=== PATIENT | male | born 1940 | race Caucasian/White ===

== ENCOUNTER → 2018-01-12 | Outpatient (CLI) | payer OTHER ==
--- NOTE | 2018-01-25 23:35 | ONC ---
[address] [address] RADIATION ONCOLOGY NOTE Name: ANGELAJAVI Room: [facility]#: [id number] Admission: 01/12/18 Attend Phys: Ren Perrin MD Discharge: Date of : 40 Report #: [id number] THIS REPORT FOR: //name// CC: Ren Bar MD DATE OF SERVICE: 01/12/2018 REFERRING PHYSICIANS: Include Dr. Brad Knapp, Dr. Smalls, Dr. Patiño, Dr. Monsalve and Dr. Chase Bar. [facility] phone is [phone]. 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 Radiation treatments were completed on 03/21/2014. PROCEDURE: Nasopharyngolaryngoscopy. FINDINGS: On nasopharyngolaryngoscopy via the right nostril after administration of a small amount of 2% viscous lidocaine orally and 2% viscous lidocaine to the right nostril, there were no visible lesions in the nasopharynx and no visible lesions in the posterior oropharynx. The true vocal cords were normally mobile bilaterally without any visible lesions. There was no evidence of laryngeal cancer at this time. Thank you for allowing me to participate in the care of this patient. <ELECTRONICALLY SIGNED> By: Ren Perrin MD 01/25/18 2335 1302 1832Demma Perrin MD /nt
--- NOTE | 2018-01-25 23:45 | ONC ---
[place] [address] RADIATION ONCOLOGY NOTE Name: ANGELAJAVI Lyndsay Room: [facility]#: [id number] Admission: 01/12/18 Attend Phys: Ren Perrin MD Discharge: Date of : 40 Report #: [id number] THIS REPORT FOR: //name// CC: Ren Bar MD DATE OF SERVICE: 01/12/2018 REFERRING PHYSICIANS: Dr. Brad Knapp, Dr. Smalls, Dr. Patiño, Dr. Monsalve and Dr. Chase Bar. [facility] phone is [phone]. 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 The radiation treatments were completed on 03/21/2014. INTERVAL NOTE: The patient has a good voice quality. He is swallowing well. He did not have any painful swallowing. He did indicate that he had a neck CT after he fell off a step ladder in November 2017 and he had the report from the neck CT done in November 2017 and it was essentially unremarkable. Also, he had a melanoma that was resected from the superior part of the nose around 2007. MEDICATIONS: Include Spiriva, pantoprazole, losartan, allopurinol, 50 mcg of levothyroxine per day and tamsulosin. SOCIAL HISTORY: The patient quit smoking in 1984. He smoked about 1 cigarette per day prior to that time. REVIEW OF SYSTEMS: RESPIRATORY: The patient was not short of breath. His breathing was baseline. GASTROINTESTINAL: The patient has a good appetite. PHYSICAL EXAMINATION: VITAL SIGNS: The patient weighed 201.2 pounds on 01/12/2018, he was 195.4 pounds on 05/12/2017 and on 01/12/2018, blood pressure was 134/76, pulse 72, respirations 18. LYMPH NODES: He had no cervical, supraclavicular lymphadenopathy. HEAD, EYES, EARS, NOSE AND THROAT: Mouth had no suspicious visible lesions or suspicious palpable lesions. On nasopharyngolaryngoscopy via the right nostril after administration of a 2% [place] [address] RADIATION ONCOLOGY NOTE Name: JAVI MILLER Room: [facility]#: [id number] Admission: 01/12/18 Attend Phys: Ren Perrin MD Discharge: Date of : 40 Report #: [id number] viscous lidocaine orally and 2% viscous lidocaine via the right nostril with a cotton swab, there were no visible lesions in the nasopharynx or posterior oropharynx. The true vocal cords were normally mobile bilaterally without visible lesions. HEART: Had a regular rate and rhythm without murmur. LUNGS: were clear to auscultation. LABORATORY DATA: From 01/05/2018 revealed TSH was 3.17, which was within normal limits on his present dose of 50 mcg of levothyroxine. ASSESSMENT AND PLAN: 1. History of laryngeal cancer- There is no evidence of laryngeal cancer at this time. The patient was asked to schedule a followup appointment to see me in about 8 months. 2. Hypothyroidism- The patient's TSH was within normal limits with him taking 50 mcg of levothyroxine per day. He was given a refill for 50 mcg of levothyroxine per day. He was given a requisition for a TSH, in August 2018. He was asked to schedule a followup appointment to see me afterwards. 3. History of melanoma that was resected from the nasal area- There is no evidence of any lesion in that area and he indicated he sees his phosphoric acid supervisor about twice a year. Thank you for allowing me to participate in the care of this patient. <ELECTRONICALLY SIGNED> By: Ren Perrin MD 01/25/18 2345 1307 1842Demma Perrin MD /nt
== END ==
LOC: M.RTH 00:37
DX: Z08 Encounter for follow-up examination after completed treatment for malignant neoplasm (principal); E03.9 Hypothyroidism, unspecified; Z85.21 Personal history of malignant neoplasm of larynx; Z87.891 Personal history of nicotine dependence; Z98.890 Other specified postprocedural states

== ENCOUNTER → 2018-09-21 | Outpatient (CLI) | payer OTHER ==
--- NOTE | 2018-09-30 17:30 | ONC ---
[place] [address] RADIATION ONCOLOGY NOTE Name: ANGELAJAVI Lyndsay Room: [facility]#: [id number] Admission: 09/21/18 Attend Phys: Ren Perrin MD Discharge: Date of : 40 Report #: [id number] THIS REPORT FOR: //name// CC: Ren Knapp MD [facility] in [place], [place] DATE OF SERVICE: 09/21/2018 REFERRING PHYSICIANS: Include [facility], [place], [place]; Brad Knapp MD; Dr. Smalls and Dr. Patiño PRIMARY SITE AND HISTOPATHOLOGY: The patient received definitive radiation therapy for a stage 1 true vocal cord cancer. Radiation treatments were completed on 03/21/2014. PROCEDURE: Nasopharyngolaryngoscopy. FINDINGS: On nasopharyngolaryngoscopy via the right nostril after administration of a small amount of 2% viscous lidocaine orally and 2% viscous lidocaine to the right nostril, there were no suspicious visible lesions in the nasopharynx. There were no suspicious visible lesions in the posterior oropharynx and the true vocal cords were normally mobile bilaterally without any visible lesions. There was no evidence of laryngeal cancer at this time. Thank you for allowing me to participate in the care of this patient. <ELECTRONICALLY SIGNED> By: Ren Perrin MD 09/30/18 1730 1023 0431DMD lynne Liz
--- NOTE | 2018-09-30 17:57 | ONC ---
[address] [address] RADIATION ONCOLOGY NOTE Name: ANGELAJAVI Lyndsay Room: [facility]#: [id number] Admission: 09/21/18 Attend Phys: Ren Perrin MD Discharge: Date of : 40 Report #: [id number] THIS REPORT FOR: //name// CC: Ren Patiño [facility] in [place], [place] DATE OF SERVICE: 09/21/2018 REFERRING PHYSICIANS: [facility] in [place] as well as Dr. Knapp, Dr. Smalls and Dr. Patiño as well [facility] phone is [phone]. 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 The radiation treatments were completed on 03/21/2014. He also had a melanoma resected from the superior portion of his nose around 2007. INTERVAL NOTE: The patient has a good voice quality. He is swallowing well. He has a good appetite and he went back to work. At this point, he says he works about 20 hours a week. MEDICATIONS: He is taking Spiriva, pantoprazole, losartan, allopurinol, 50 mcg of levothyroxine per day and tamsulosin. SOCIAL HISTORY: The patient quit smoking in 1984. He smoked about 1 cigarette per day prior to that time. REVIEW OF SYSTEMS: RESPIRATORY: The patient was not short of breath. His breathing was baseline. GASTROINTESTINAL: The patient has a good appetite. PHYSICAL EXAMINATION: VITAL SIGNS: The patient weighed 193.4 pounds on 09/21/2018, he was 201.2 pounds on 01/12/2018, he was 195.4 pounds on 05/12/2017. On 09/21/2018, blood pressure was 126/60, pulse 64, respirations 20 and oxygen saturation 95%. LYMPH NODES: He had no palpable cervical or supraclavicular lymphadenopathy. HEAD, EYES, EARS, NOSE AND THROAT: Mouth had no suspicious visible lesions. There were no suspicious palpable lesions in the mouth. The nose had no suspicious visible lesions. On nasopharyngolaryngoscopy via the right nostril after administration of a small amount of 2% viscous lidocaine orally and 2% viscous lidocaine via the right nostril with a cotton swab, there were no visible lesions in the nasopharynx or posterior oropharynx. The true vocal cords were [place] [address] RADIATION ONCOLOGY NOTE Name: JAVI MILLER Room: [facility]#: [id number] Admission: 09/21/18 Attend Phys: Ren Perrin MD Discharge: Date of : 40 Report #: [id number] without visible lesions. HEART: Had a regular rate and rhythm without murmur. LUNGS: were clear to auscultation. LABORATORY DATA: From 09/17/2018, TSH was 2.38, which was within normal limits on his present dose of 50 mcg of levothyroxine. ASSESSMENT AND PLAN: 1. History of laryngeal cancer- There is no evidence of laryngeal cancer at this time. The patient was asked to schedule a follow up appointment to see me in about 8 months. 2. Hypothyroidism- The patient's TSH is within normal limits with him taking 50 mcg of levothyroxine per day. He was given a refill for 50 mcg of levothyroxine per day. He was given a requisition for TSH in about 8 months and he was asked to schedule a follow up appointment to see me afterwards. 3. History of melanoma resected from the nasal area- There is no evidence of any lesion in that area and he indicated he sees his sommelier, Dr. Patiño about twice a year. Thank you for allowing me to participate in the care of this patient. <ELECTRONICALLY SIGNED> By: Ren Perrin MD 09/30/18 1757 1030 0450Ren Perrin MD /nt
== END ==
LOC: M.RTH 03:41
DX: Z08 Encounter for follow-up examination after completed treatment for malignant neoplasm (principal); E03.9 Hypothyroidism, unspecified; Z85.21 Personal history of malignant neoplasm of larynx; Z85.22 Personal history of malignant neoplasm of nasal cavities, middle ear, and accessory sinuses

== ENCOUNTER → 2019-05-31 | Outpatient (CLI) | payer OTHER ==
--- NOTE | ~2019-05-31 | ONC ---
[place] [address] RADIATION ONCOLOGY NOTE Name: JAVI MILLER Room: [facility]#: [id number] Admission: 05/31/19 Attend Phys: Ren Perrin MD Discharge: Date of : 40 Report #: [id number] THIS REPORT FOR: //name// CC: Ren Knapp DATE OF SERVICE: 05/31/2019 RADIATION ONCOLOGY PROCEDURE NOTE REFERRING PHYSICIANS: Dr. Patiño, Dr. Smalls, Dr. Brad Knapp in [facility] in [place], [place]. PRIMARY SITE AND HISTOPATHOLOGY: The patient received definitive radiation therapy for stage 1 true vocal cord cancer. Radiation treatments were completed on 03/21/2014. PROCEDURE: Nasopharyngolaryngoscopy. FINDINGS: On nasopharyngolaryngoscopy via the right nostril after administration of a small amount of 2% viscous lidocaine orally, 2% viscous lidocaine to the right nostril, there were no suspicious visible lesions in the nasopharynx. There are no suspicious visible lesions in the posterior oropharynx and the true vocal cords are normally mobile bilaterally without any visible lesions. There was no evidence of laryngeal cancer at this time. Thank you for allowing me to participate in the care of this patient. By: [facility] 2322Demma Perrin MD /nt
--- NOTE | ~2019-05-31 | ONC ---
[place] [address] RADIATION ONCOLOGY NOTE Name: ANGELAJAVI Lyndsay Room: [facility]#: [id number] Admission: 05/31/19 Attend Phys: Ren Perrin MD Discharge: Date of : 40 Report #: [id number] THIS REPORT FOR: //name// CC: Ren Knapp DATE OF SERVICE: 05/31/2019 REFERRING PHYSICIANS: Kenny Smalls MD; Brad Knapp MD; Dr. Patiño in the [facility] in [place], [place]. [facility] phone is [phone]. PRIMARY SITE AND HISTOPATHOLOGY: The patient received definitive radiation therapy for stage 1 true vocal cord cancer. The radiation treatments were completed on 03/21/2014. He also had a melanoma resected from the superior portion of his nose around 2007. INTERVAL NOTE: The patient has a good voice quality. He is swallowing well. He has a good appetite. MEDICATIONS: Include Spiriva, Nexium, losartan, allopurinol, 50 mcg of levothyroxine per day and tamsulosin. SOCIAL HISTORY: The patient quit smoking in 1984. He smoked about 1 cigarette per day prior to that time. REVIEW OF SYSTEMS: RESPIRATORY: The patient was not short of breath. His breathing was baseline. GASTROINTESTINAL: The patient has a good appetite. PHYSICAL EXAMINATION: VITAL SIGNS: The patient weighed 192 pounds on 05/31/2019 and 193.4 pounds on 09/21/2018; on 05/31/2019, blood pressure 128/66, pulse 60, respirations 20, oxygen saturation 94%. LYMPH NODES: He had no palpable cervical or supraclavicular lymphadenopathy. HEAD, EYES, EARS, NOSE AND THROAT: Mouth had no suspicious visible lesions or suspicious palpable lesions. On nasopharyngolaryngoscopy via the right nostril after administration of a small amount of 2% viscous lidocaine orally and 2% viscous lidocaine via the right nostril with a cotton swab, there were no visible lesions in the nasopharynx or posterior oropharynx. The true vocal cords were normally mobile bilaterally without visible lesions. HEART: Had a regular rate and rhythm without murmur. LUNGS: Clear to auscultation. LABORATORY DATA: From 05/24/2019; TSH was 3.53, [place] [address] RADIATION ONCOLOGY NOTE Name: JAVI MILLER Room: [facility]#: [id number] Admission: 05/31/19 Attend Phys: Ren Perrin MD Discharge: Date of : 40 Report #: [id number] on his present dose of 50 mcg of levothyroxine. ASSESSMENT AND PLAN: 1. History of laryngeal cancer. There is no evidence of laryngeal cancer at this time. A requisition was given to him to have a TSH checked in about 1 year and the patient was asked to schedule a followup appointment to see me afterwards. 2. Hypothyroidism. The patient's TSH was within normal limits with him taking 50 mcg of levothyroxine per day. He was given a refill for 50 mcg of levothyroxine per day. He was given a requisition for TSH in about 1 year. He was asked to schedule a followup appointment to see me afterwards. 3. History of melanoma resected from the nasal area. There is no evidence of any lesion in that area. He says he sees his structural manager, Dr. Patiño about twice a year. Thank you for allowing me to participate in the care of this patient. By: [id number] Perrin MD /gee
== END ==
LOC: M.RTH 04:09
DX: Z08 Encounter for follow-up examination after completed treatment for malignant neoplasm (principal); E03.9 Hypothyroidism, unspecified; Z79.899 Other long term (current) drug therapy; Z85.21 Personal history of malignant neoplasm of larynx; Z85.820 Personal history of malignant melanoma of skin

== ENCOUNTER → 2020-05-29 | Outpatient (CLI) | payer MEDICARE ==
--- NOTE | 2020-05-30 18:24 | ONC ---
[address] [address] RADIATION ONCOLOGY NOTE Name: JAVI MILLER Room: [facility].#: [id number] Admission: 05/29/20 Attend Phys: Ren Perrin MD Discharge: Date of : 40 Report #: [id number] THIS REPORT FOR: //name// CC: Ren Patiño MD [facility] in [place], [place] DATE OF PROCEDURE: 05/29/2020 RADIATION ONCOLOGY FOLLOWUP NOTE He also follows up at the [facility] in [place]. [facility] phone is [phone]. PRIMARY SITE AND HISTOPATHOLOGY: The patient received definitive radiation therapy for a stage I true vocal cord. The radiation treatments were completed on 03/21/2014. PROCEDURE: Nasopharyngolaryngoscopy. FINDINGS: On nasopharyngolaryngoscopy via the right nostril after administration of a small amount of 2% viscous lidocaine orally and 2% viscous lidocaine to the right nostril, there were no visible suspicious lesions in the nasopharynx, there were no suspicious visible lesions in the posterior oropharynx and the true vocal cords were normally mobile bilaterally without any visible lesions. There is no evidence of laryngeal cancer at this point. Thank you for allowing me to participate in the care of this patient. <ELECTRONICALLY SIGNED> By: Ren Perrin MD 05/30/20 1824 1014 1055MD lynne Moon
--- NOTE | 2020-05-31 12:59 | ONC ---
[address] [address] RADIATION ONCOLOGY NOTE Name: ANGELAJAVI Room: [facility]#: [id number] Admission: 05/29/20 Attend Phys: Ren Perrin MD Discharge: Date of : 40 Report #: [id number] THIS REPORT FOR: //name// CC: Ren Smalls [facility] in [place], [place] DATE OF SERVICE: 05/29/2020 FOLLOWUP NOTE REFERRING PHYSICIANS: Dr. Brad Knapp, Dr. Patiño, Dr. Smalls and [facility] in [facility] phone is [phone]. 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 The radiation treatments were completed on 03/21/2014. He also had a melanoma resected from the superior portion of his nose around 2007. INTERVAL NOTE: The patient has a good voice quality. He is swallowing well. He has a good appetite. He denied having any lesions on his nose. He said he saw his boom truck driver on 05/27/2020 and he said that he saw his boom truck driver and he did not see any malignant skin lesions, though he did get some actinic keratoses frozen with liquid nitrogen. He no longer is taking his losartan since his blood pressure has improved. MEDICATIONS: Include Spiriva, Nexium, allopurinol and 50 mcg of levothyroxine per day and tamsulosin. SOCIAL HISTORY: The patient quit smoking in 1984. He smoked about 1 cigarette per day prior to that time. REVIEW OF SYSTEMS: RESPIRATORY: The patient was not short of breath. His breathing was baseline. GASTROINTESTINAL: The patient has a good appetite. PHYSICAL EXAMINATION: VITAL SIGNS: The patient weighed 190 pounds on 05/29/2020, 192 pounds on 05/31/2019. On 05/29/2020 blood pressure was 130/74, pulse 50, respirations 16, temperature 97.8 degrees Fahrenheit, oxygen saturation was 94%. LYMPH NODES: He had no palpable cervical or supraclavicular lymphadenopathy. HEAD, EYES, EARS, NOSE AND THROAT: Mouth had [place] [address] RADIATION ONCOLOGY NOTE Name: JAVI MILLER Room: [facility]#: [id number] Admission: 05/29/20 Attend Phys: Ren Perrin MD Discharge: Date of : 40 Report #: [id number] suspicious palpable lesions. On nasopharyngolaryngoscopy via the right nostril after administration of a small amount of 2% viscous lidocaine orally and 2% viscous lidocaine via the right nostril with a cotton swab. There were no visible lesions in the nasopharynx or posterior oropharynx. The true vocal cords were normally mobile bilaterally without visible lesions. HEART: Had a regular rate and rhythm without murmur. LUNGS: were clear to auscultation. LABORATORY DATA: The patient's TSH was 2.32, which was within normal limits on 05/19/2020 with the patient taking 50 mcg of levothyroxine per day. ASSESSMENT AND PLAN: 1. History of laryngeal cancer- There is no evidence of laryngeal cancer at this time. The patient was asked to schedule a follow up appointment to see me in about 1 year. 2. Hypothyroidism- The patient's TSH was within normal limits with the patient taking 50 mcg of levothyroxine per day. He was given a refill for 50 mcg of levothyroxine per day and a requisition was written for a TSH in about 1 year and the patient was asked to schedule a follow up appointment to see me afterwards. 3. History of melanoma resected from the nasal area- There is no visible evidence of any lesion in that area. The patient continues to follow up with his boom truck driver, Dr. Patiño, about twice a year and he just saw him on 05/27/2020 and had some actinic keratoses frozen with liquid nitrogen. Thank you for allowing me to participate in the care of this patient. <ELECTRONICALLY SIGNED> By: Ren Perrin MD 05/31/20 1259 1020 1058Ren Perrin MD /nt
== END ==
LOC: M.RTH 09:00
PROVIDERS: ATTEND Radiology Radiation Oncology
DX: Z08 Encounter for follow-up examination after completed treatment for malignant neoplasm (principal); Z85.21 Personal history of malignant neoplasm of larynx; Z87.891 Personal history of nicotine dependence